=== PATIENT | male | born 1945 | race Caucasian/White ===

== ENCOUNTER 2022-04-23 23:05 | Inpatient (IN) | payer MEDICARE, OTHER ==
[2022-04-23] MEDS ORDERED: Sodium Chloride 0.9% 1,000 ML IV ONE (23:58)
[2022-04-24 00:35] LABS: CORONAVIRUS COVID-19 NAA NEGATIVE (NEGATIVE)
[2022-04-24] MEDS: Sodium Chloride 0.9% 10 ML Syringe FLUSH PRN ×2 (00:40→15:01)
[2022-04-24] MEDS ORDERED: Magnesium Sulfate/Water 4 GM in Premix Bag 1 BAG IV ONE (01:37)
[2022-04-24] MEDS: Sodium Chloride 0.9% 1,000 ML IV SCH ×2 (01:46→22:56)
[2022-04-24] MEDS ORDERED: Iopamidol 755 Mg/ML 100 ML Bottle IVPUSH ONE (02:35)
[2022-04-24] MEDS ORDERED: Aspirin 81 MG Tab.Chew PO STA (02:45)
[2022-04-24] MEDS ORDERED: Heparin Sodium 5,000 Units/ML Vial IVPUSH STA (02:46)
[2022-04-24] MEDS ORDERED: Heparin Sodium/D5W 25,000 UNITS/500 ML BAG IV SCH ×2 (03:00→11:30)
[2022-04-24] MEDS: Cephalexin 500 MG Cap PO SCH ×2 (04:57→13:07)
[2022-04-24] MEDS ORDERED: Heparin Sodium 5,000 Units/ML Vial IVPUSH ONE (11:45)
[2022-04-24] MEDS ORDERED: cefTRIAXone 2 GM in Sodium Chloride 0.9% 100 ML IV ONE (14:04)
[2022-04-24] MEDS ORDERED: Iopamidol 612 MG/ML 100 ML Bottle IVPUSH ONE (14:30)
[2022-04-24] MEDS ORDERED: Sodium Chloride 0.9% 100 ML IV SCH (14:45)
[2022-04-24] MEDS ORDERED: Lisinopril 10 MG Tab PO ONE (15:45)
[2022-04-24] MEDS ORDERED: Magnesium Hydroxide 400 MG/5 ML Susp 30 ML Cup PO PRN (17:38)
[2022-04-24] MEDS ORDERED: Albuterol/Ipratropium 3.0-0.5 MG/3 ML Neb Soln NEB PRN (17:38)
[2022-04-24] MEDS ORDERED: Acetaminophen/HYDROcodone 325-5 MG Tab PO PRN (17:38)
[2022-04-24] MEDS ORDERED: Zolpidem 5 MG Tab PO PRN (17:38)
[2022-04-24] MEDS ORDERED: Pantoprazole 40 MG Vial IVPUSH ONE (17:38)
[2022-04-24] MEDS ORDERED: Ondansetron 4 MG Tab.DIS PO PRN (17:38)
[2022-04-24] MEDS ORDERED: Furosemide 20 MG/2 ML VIAL IVPUSH SCH (18:00)
[2022-04-24] MEDS ORDERED: Insulin Glargine,Human Rec. Analog 100 Units/ML 3 ML Pen SUBCUT SCH (18:00)
[2022-04-24] MEDS ORDERED: Azithromycin 500 MG in Sodium Chloride 0.9% 250 ML IV SCH (18:30)
[2022-04-24] MEDS ORDERED: Aspirin 81 MG Tab.Chew PO SCH (21:00)
[2022-04-24] MEDS: Azithromycin 500 MG in Sodium Chloride 0.9% 250 ML IV SCH (22:57)
[2022-04-24] MEDS: Furosemide 20 MG/2 ML VIAL IVPUSH SCH (22:57)
[2022-04-25] MEDS: Pantoprazole 40 MG Tab.CR PO SCH (06:05)
[2022-04-25] MEDS: Sodium Chloride 0.9% 1,000 ML IV SCH ×2 (06:05→18:49)
[2022-04-25] MEDS: FLUTICASONE FUROATE 200 MCG INH SCH (08:43)
[2022-04-25] MEDS: UMECLIDINIUM INH SCH (08:44)
[2022-04-25] MEDS: VILANTEROL INH SCH (08:44)
[2022-04-25] MEDS ORDERED: VILANTEROL TR INH SCH (09:00)
[2022-04-25] MEDS ORDERED: FLUTICASONE FUROATE 200 MCG INH SCH (09:00)
[2022-04-25] MEDS ORDERED: UMECLIDINIUM BRM INH SCH (09:00)
[2022-04-25] MEDS ORDERED: Tiotropium BR/Olodaterol HCL 4 GM Inhalation Spray 2.5mcg/1 dose; 10 doses INH SCH (09:00)
[2022-04-25] MEDS ORDERED: Non-Formulary Medication 1 Each (Lisinopril/Hydrochlorothiazide 1 EACH Tablet) PO SCH (09:00)
[2022-04-25] MEDS ORDERED: Magnesium Sulfate/Water 2 GM in Premix Bag 1 BAG IV ONE (09:00)
[2022-04-25] MEDS: Lisinopril 10 MG Tab PO SCH (09:01)
[2022-04-25] MEDS: Pravastatin 20 MG Tab PO SCH (09:01)
[2022-04-25] MEDS: Aspirin 81 MG Tab.EC PO SCH (09:01)
[2022-04-25] MEDS: Hydrochlorothiazide 12.5 MG Cap PO SCH (09:01)
[2022-04-25] MEDS: Insulin Glargine,Human Rec. Analog 100 Units/ML 3 ML Pen SUBCUT SCH (09:02)
[2022-04-25] MEDS: Furosemide 20 MG/2 ML VIAL IVPUSH SCH (09:03)
[2022-04-25] MEDS: Insulin Lispro 100 Unit/ML 3 ML KwikPen SUBCUT SCH ×3 (09:32→16:58)
[2022-04-25] MEDS: Enoxaparin 30 MG/0.3 ML Syringe SUBCUT SCH (13:10)
[2022-04-25] MEDS: cefTRIAXone 1 GM in Sodium Chloride 0.9% 100 ML IV SCH (13:10)
[2022-04-25] MEDS: Azithromycin 500 MG in Sodium Chloride 0.9% 250 ML IV SCH (20:37)
[2022-04-26] MEDS: Insulin Lispro 100 Unit/ML 3 ML KwikPen SUBCUT SCH ×3 (06:38→17:40)
[2022-04-26] MEDS: Pantoprazole 40 MG Tab.CR PO SCH (06:50)
[2022-04-26] MEDS: Sodium Chloride 0.9% 1,000 ML IV SCH ×2 (08:30→21:41)
[2022-04-26] MEDS: Lisinopril 10 MG Tab PO SCH (08:31)
[2022-04-26] MEDS: Pravastatin 20 MG Tab PO SCH (08:31)
[2022-04-26] MEDS: Aspirin 81 MG Tab.EC PO SCH (08:32)
[2022-04-26] MEDS: Insulin Glargine,Human Rec. Analog 100 Units/ML 3 ML Pen SUBCUT SCH (08:32)
[2022-04-26] MEDS: Furosemide 20 MG/2 ML VIAL IVPUSH SCH (08:32)
[2022-04-26] MEDS: Hydrochlorothiazide 12.5 MG Cap PO SCH (08:32)
[2022-04-26] MEDS: FLUTICASONE FUROATE 200 MCG INH SCH (08:41)
[2022-04-26] MEDS: UMECLIDINIUM INH SCH (08:41)
[2022-04-26] MEDS: VILANTEROL INH SCH (08:41)
[2022-04-26] MEDS: Enoxaparin 30 MG/0.3 ML Syringe SUBCUT SCH (11:33)
[2022-04-26] MEDS: cefTRIAXone 1 GM in Sodium Chloride 0.9% 100 ML IV SCH (14:44)
[2022-04-26] MEDS: Acetaminophen 325 MG Tab PO PRN ×2 (14:56→21:56)
[2022-04-26] MEDS: Azithromycin 500 MG in Sodium Chloride 0.9% 250 ML IV SCH (20:27)
[2022-04-27] MEDS: Pantoprazole 40 MG Tab.CR PO SCH (06:53)
[2022-04-27] MEDS: Furosemide 20 MG/2 ML VIAL IVPUSH SCH (08:10)
[2022-04-27] MEDS: Lisinopril 10 MG Tab PO SCH (08:10)
[2022-04-27] MEDS: Hydrochlorothiazide 12.5 MG Cap PO SCH (08:11)
[2022-04-27] MEDS: Insulin Lispro 100 Unit/ML 3 ML KwikPen SUBCUT SCH ×3 (08:11→17:55)
[2022-04-27] MEDS: Aspirin 81 MG Tab.EC PO SCH (08:11)
[2022-04-27] MEDS: Insulin Glargine,Human Rec. Analog 100 Units/ML 3 ML Pen SUBCUT SCH (08:29)
[2022-04-27] MEDS: Pravastatin 20 MG Tab PO SCH (08:30)
[2022-04-27] MEDS: FLUTICASONE FUROATE 200 MCG INH SCH (08:33)
[2022-04-27] MEDS: VILANTEROL INH SCH (08:34)
[2022-04-27] MEDS: UMECLIDINIUM INH SCH (08:34)
[2022-04-27] MEDS: Enoxaparin 30 MG/0.3 ML Syringe SUBCUT SCH (12:40)
[2022-04-27] MEDS: cefTRIAXone 1 GM in Sodium Chloride 0.9% 100 ML IV SCH (14:10)
[2022-04-28] MEDS: Pantoprazole 40 MG Tab.CR PO SCH (06:03)
[2022-04-28] MEDS: Insulin Lispro 100 Unit/ML 3 ML KwikPen SUBCUT SCH ×2 (07:57→11:30)
[2022-04-28] MEDS: Hydrochlorothiazide 12.5 MG Cap PO SCH (08:12)
[2022-04-28] MEDS: Pravastatin 20 MG Tab PO SCH (08:12)
[2022-04-28] MEDS: Lisinopril 10 MG Tab PO SCH (08:12)
[2022-04-28] MEDS: Insulin Glargine,Human Rec. Analog 100 Units/ML 3 ML Pen SUBCUT SCH (08:13)
[2022-04-28] MEDS: Aspirin 81 MG Tab.EC PO SCH (08:13)
[2022-04-28] MEDS ORDERED: Gadobenate Dimeglumine 529 MG/ML 20 ML SDV IVPUSH ONE (10:41)
[2022-04-28] MEDS ORDERED: Sodium Chloride 0.9% 10 ML Syringe FLUSH SCH (10:45)
[2022-04-28] MEDS ORDERED: Potassium Chloride 20 MEQ Tab.ER PO ONE (11:39)
[2022-04-28] MEDS: Enoxaparin 30 MG/0.3 ML Syringe SUBCUT SCH (11:43)
== END 2022-04-28 14:56 | disposition home or self-care (01) | DRG 156 ==
LOC: JD.ED 23:05 → JD.MS 04-24 17:34
PROVIDERS: ADMIT Pediatrics; ATTEND Internal Medicine
DX: H60.12 Cellulitis of left external ear (principal); R09.02 Hypoxemia; E83.42 Hypomagnesemia; R79.89 Other specified abnormal findings of blood chemistry; R77.8 Other specified abnormalities of plasma proteins; E11.65 Type 2 diabetes mellitus with hyperglycemia; N18.32 Chronic kidney disease, stage 3b; H60.90 Unspecified otitis externa, unspecified ear; I25.10 Atherosclerotic heart disease of native coronary artery without angina pectoris; E66.9 Obesity, unspecified; Z20.822 Contact with and (suspected) exposure to COVID-19; E78.00 Pure hypercholesterolemia, unspecified; I10 Essential (primary) hypertension; J44.9 Chronic obstructive pulmonary disease, unspecified; W19.XXXA Unspecified fall, initial encounter; K21.9 Gastro-esophageal reflux disease without esophagitis; E11.22 Type 2 diabetes mellitus with diabetic chronic kidney disease; Z98.41 Cataract extraction status, right eye; Z98.42 Cataract extraction status, left eye; Z79.4 Long term (current) use of insulin; Z79.82 Long term (current) use of aspirin; Z79.899 Other long term (current) drug therapy; Z90.49 Acquired absence of other specified parts of digestive tract; Z87.891 Personal history of nicotine dependence
CPT/HCPCS: 0241U; 36415; 36600; 70487; 70553; 71045; 71275; 80048; 80053; 81001; 82803; 82947; 83605; 83735; 83880; 84145; 84484; 85007; 85025; 85027; 85379; 85610; 85730; 86140; 87040; 87070; 93005; 94640; 94760; A9270-GY; A9577; J0456; J0696; J1644; J1650; J1815; J1815-GY; J1940; J3475; J3490; J7030; J7050; Q9967